=== PATIENT | male | born 1990 | race Caucasian/White ===

== ENCOUNTER 2017-08-26 20:59 | Emergency (ER) | payer MEDICAID ==
[2017-08-26 21:06] VITALS: BMI 41.3
[2017-08-26 21:13] VITALS: RESP 16; TEMP 98.3
--- NOTE | 2017-08-26 22:13 | ED PDOC ---
Arrival/HPI - General Chief Complaint: Back Pain Time Seen by Provider: 08/26/17 22:01 Historian: Patient - History of Present Illness Narrative History of Present Illness (Text): 08/26/17 22:08 Pt is a 26 yo male with a previous h/o L4-L5 disc herniation 3 yrs ago, presents with left low back pain x 1 day after lifting a 125lb container of pizza dough at work yesterday. Pt describes lifting and twisting to the left side and feeling a sharp pain in the lumbar area hat refereed down to his lefty hip. He states he knows this pain well because of his previous back problem that was very debilitating at the time. He denies radiation down the left leg, numbness and tingling, loss of bladder and bowel, loss of motor control in lower extremity. Time/Duration: 24 hours Symptom Onset: Sudden Symptom Course: Unchanged Quality: Aching, Pressure Severity Level: Moderate Activities at Onset: Rest, Light, Sleeping Context: Home, Work Past Medical History - Provider Review Nursing Documentation Reviewed: Yes - Travel History Have you recently traveled outside [place] w/in the past 3 mons?: No - Past History Past History: No Previous - Infectious Disease Hx of Infectious Diseases: None - Past Medical History Past Medical History: No Previous - Musculoskeletal/Rheumatological Hx Herniated Disk: Yes - Psychiatric Hx Depression: No Hx Emotional Abuse: No Hx Physical Abuse: No Hx Substance Use: Yes - Past Surgical History Past Surgical History: No Previous - Anesthesia Hx Anesthesia: No - Suicidal Assessment Feels Threatened In Home Enviroment: No Family/Social History - Physician Review Nursing Documentation Reviewed: Yes Family/Social History: No Known Family HX Smoking Status: Never Smoked Hx Alcohol Use: No Hx Substance Use: Yes Substance used: marijuana Hx Substance Use Treatment: No Allergies/Home Meds Allergies/Adverse Reactions: Allergies No Known Allergies Allergy (Verified 09/20/12 10:38) Review of Systems - Review of Systems Constitutional: Normal Eyes: Normal ENT: Normal Respiratory: Normal Cardiovascular: Normal Gastrointestinal: Normal Genitourinary Male: Normal Musculoskeletal: Back Pain (left low back) Skin: Normal Neurological: Normal Endocrine: Normal Hemo/Lymphatic: Normal Psychiatric: Normal Physical Exam Vital Signs Reviewed: Yes Vital Signs Temp Pulse Resp BP Pulse Ox 08/26/17 22:30 82 16 140/70 100 08/26/17 21:12 98.3 F 90 16 147/77 97 Temperature: Afebrile Blood Pressure: Normal Pulse: Regular Respiratory Rate: Normal Appearance: Positive for: Well-Appearing, Non-Toxic, Comfortable Pain Distress: None Mental Status: Positive for: Alert and Oriented X 3 - Systems Exam Head: Present: Atraumatic, Normocephalic Pupils: Present: PERRL Extroacular Muscles: Present: EOMI Conjunctiva: Present: Normal Mouth: Present: Moist Mucous Membranes Neck: Present: Normal Range of Motion Respiratory/Chest: Present: Clear to Auscultation, Good Air Exchange. No: Respiratory Distress, Accessory Muscle Use Cardiovascular: Present: Regular Rate and Rhythm, Normal S1, S2. No: Murmurs Abdomen: Present: Normal Bowel Sounds. No: Tenderness, Distention, Peritoneal Signs Back: Present: Normal Inspection, Paraspinal Tenderness (Left L4-S1 ), Pain with Leg Raise (Left leg <15 degrees). No: CVA Tenderness, Midline Tenderness, Decubitus Ulcer, Other Upper Extremity: Present: Normal Inspection. No: Cyanosis, Edema Lower Extremity: Present: Normal Inspection, Normal ROM. No: Edema, CALF TENDERNESS, NORMAL PULSES, Cyanosis, Deshawn's Sign, Tenderness, Swelling, Erythema, Deformity, Temperature Abnormalties, Neurovascularly Intact, Capillary Refill < 2 s, Other Neurological: Present: GCS=15, CN II-XII Intact, Speech Normal, Motor Func Grossly Intact, Normal Sensory Function, Norm Deep Tendon Reflexes, Gait Normal Skin: Present: Warm, Dry, Normal Color. No: Rashes Psychiatric: Present: Alert, Oriented x 3, Normal Insight, Normal Concentration Medical Decision Making ED Course and Treatment: 08/26/17 22:13 Impression Pt is a 26 yo male with a previous h/o L4-L5 disc herniation 3 yrs ago, presents with left low back pain x 1 day after lifting a 125lb container of pizza dough at work yesterday On exam, SLR positive on the left and point tenderness on the left L5 paraspinal aspect as well as the SIJ; SILT and motor function of LE full 5/5 bilateral Plan Toradol 60 mg IM given for pain and inflammation Patient's girlfriend at bedside and can assist him home Dispo home with cyclobenzaprine and ibuprofen Follow up with shipyard painter apprentice to receive PT Pt ambulated well out of ER - Medication Orders Current Medication Orders: Discontinued Medications Ketorolac Tromethamine (Toradol) 60 mg IM STAT STA Stop: 08/26/17 22:03 Last Admin: 08/26/17 22:22 Dose: 60 mg MAR Pain Assessment Document 08/26/17 22:22 MS (Rec: 08/26/17 22:24 MS [facility] [place]-[id number]) Pain Reassessment Is this a pain reassessment? No Sleep Is patient sleeping during reassessment? No Presence of Pain Presence of Pain Yes Pain Scale Used Pain Scale Used Numeric Location Left, Right or Bilateral Left Upper or Lower Lower Pain Location Body Site Back Description Description Intermittent Intensity of Pain at present 6 Pain Behavior Guarding IM Administration Charges Document 08/26/17 22:22 MS (Rec: 08/26/17 22:24 MS [facility] [place]-[id number]) Injection Site MAR Injection Site Left Deltoid Charges for Administration # of IM Administrations 1 Disposition/Present on Arrival - Present on Arrival Any Indicators Present on Arrival: No History of DVT/PE: No History of Uncontrolled Diabetes: No Urinary Catheter: No History of Decub. Ulcer: No History Surgical Site Infection Following: None - Disposition Have Diagnosis and Disposition been Completed?: Yes Diagnosis: Disc herniation, Low back pain due to displacement of intervertebral disc Disposition: HOME/ ROUTINE Disposition Time: 22:20 Patient Plan: Discharge Condition: GOOD Discharge Instructions (ExitCare): Ibuprofen (By mouth), Cyclobenzaprine (By mouth), Lumbar Disc Herniation (ED), Acute Low Back Pain (ED) Additional Instructions: Dear Linda, If you experience severe fever, pain, chest pain or shortness of breath of any other alarming symptoms, return to the emergency [facility] immediately. Take the medication we prescribed as directed and note that this medication can make you drowsy so please use care and caution while taking it. Please follow up with a shipyard painter apprentice in the next 5 days All the best in your recovery. Prescriptions: Cyclobenzaprine [Flexeril] 10 mg PO Q12 #15 tab Ibuprofen [Motrin Tab] 600 mg PO Q6 PRN 5 Days #20 tab PRN Reason: pain/fever Referrals: Gonsalo Cantu MD [Primary Care Provider] - Follow up with primary Forms: [employer] (Sammarinese), WORK NOTE
[2017-08-26 22:31] VITALS: BP 140/70; PULSE 82; O2SAT 100
== END 2017-08-26 22:31 | disposition home or self-care (01) ==
LOC: ED 20:59
DX: M51.26 Other intervertebral disc displacement, lumbar region (principal)
CPT/HCPCS: 96372; 99282; J1885